=== PATIENT | female | born 1990 | race Caucasian/White ===

== ENCOUNTER 2019-03-04 19:43 | Observation (INO) ==
[2019-03-04 20:14] LABS: Amphetamine Screen,Urine Negative ng/mL (Cutoff=1000); Barbiturate Screen,Urine Negative ng/mL (Cutoff=200); Benzodiazepines Screen,Urine Negative ng/mL (Cutoff=200); Cannabinoid Screen,Urine Negative ng/mL (Cutoff = 50); Cocaine Screen,Urine Negative ng/mL (Cutoff= 300); Opiate Screen,Urine Negative ng/mL (Cutoff=300); Phencyclidine Screen,Urine Negative ng/mL (Cutoff=25)
[2019-03-04] MEDS ORDERED: Ringers Solution, Lactated 1,000 ML IVC SCH (20:30)
[2019-03-04] MEDS ORDERED: Ringers Solution, Lactated 1,000 ML ONE (20:33)
--- NOTE | 2019-03-04 20:37 | OB/GYN History & Physical ---
Date of Encounter: 03/04/19 Time of Encounter: 20:29 Assessment and Plan (1) 31 weeks gestation of Current visit: Yes Status: Acute admitted for observation (2) labor in third trimester Current visit: Yes Status: Acute Collaboration with Dr. Koehler the physician oncall: 1. IV hydration 2. Continuous EFM ant TOCO 3. CBC and glucose 4. Betamethasone to be give 5. If contractions start consider tocolysis and transfer to [facility] with cervical change 6. No antibiotics at this time Qualifiers: labor delivery status: without delivery Qualified Code(s): O60.03 - labor without delivery, third trimester History of Present Illness Chief complaint: vaginal bleeding HPI: Ms. Rocha is a 28 year old female @ 31w5d presents to labor and delivery with complaints of vaginal bleeding following intercourse. Patient states for the past week she has felt crampy and had pressure. She reports urinary frequency but denies dysuria. She reports good movement. Denies feeling contraction. She is a GDM diet controlled. At 20w2d patient had a cervical length of 3.5cm with a 1.2 cm funnel without sludge. Patient receives care with [facility]. Blood type: O Positive Rubella: Immune Hep B: Nonreactive GBS: unknown Past Med Surg Social Fam HX - Past Medical History Source: patient Medical history: no medical history Additional medical history: gastritis Psychiatric history: anxiety, depression - Past Surgical History Surgical History: other (Dental) Additional surgical history: teeth - Social History Smoking Status: Former smoker Smokeless Tobacco Status: Yes (occasionally) Alcohol use: none Drug use: none Current living situation: Home - Independent Activity Level: Independent ambulation - Family History Mother Age: 55 Living Status: Still Living Hx Family Cardiac Disorders: Yes (HTN) Obstetrical History - Pregnancies : 2 Para: 1 Term: 1 : 0 Ab's: 0 Livin Medications and Allergies Acetaminophen [Tylenol] 500 mg PO Q6HR PRN #20 tablet 09/03/18 [Rx] Alive Gummy 09/03/18 [History] Allergy/AdvReac Type Severity Reaction Status Date / Time Amoxicillin [From Amoxil] Allergy Hives Verified 01/26/19 12:33 metronidazole [From Flagyl] AdvReac See Verified 01/26/19 12:33 Comments Review of System OB - Constitutional Constitutional ROS IM: no chills, no fever(s), no headache(s) - Cardiovascular Cardiovascular: no chest pain, no lightheadedness, no palpitations, no syncope - Respiratory Respiratory: no cough, no dyspnea - Gastrointestinal Gastrointestinal: cramping, no constipation, no diarrhea, no heartburn, no nausea, no vomiting - Genitourinary Genitourinary: abnormal vaginal bleeding (per HPI), urinary frequency, no dysuria, no flank pain, no hematuria, no urinary hesitancy, no urinary urgency, no vaginal odor, no vaginal pruritis Exam - Constitutional Constitutional: well developed, well nourished, no acute distress, average body habitus - HEENT HEENT: Normocephaly, Mucus Membranes Moist - Neck Neck exam: full ROM, supple - Lungs Respiratory exam: CTAB - Cardiovascular Cardiovascular exam: RRR, +S1, +S2 - Abdomen Abdomen: Present: bowel sounds normal, gravid, non tender - Extremities Extremities exam: full ROM, normal capillary refill, normal inspection Deep Tendon Reflex Grade: 2+ Normal - Cervix Dilation: 3 Effacement: 60 Station: -3 - Uterus Uterus exam: Present: normal size, normal contour - Anus/Rectum Anus/Rectum: Present: normal perianal skin - Comments Comments: Speculum exam: Small amount of brown tinged discharge noted in the vagina. No active bleeding noted. Results All other labs normal. - VTE Reasons for not Prescribing Prophylaxis: Treatment not Indicated - Low risk for VTE
[2019-03-04] MEDS: Betamethasone Acet/SodPhos 30 MG/5 ML VIAL IM SCH (20:44)
[2019-03-04 21:04] LABS: Basophils % 0.3 %; Eosinophils # 0.1 K/mcL (0.0-0.6); Eosinophils % 1.1 %; Hematocrit 31.8 % (35.3-44.9); Hemoglobin 10.8 g/dL (11.5-15.4); Immature Granulocytes % 0.6 % (0-4); Lymphocytes % 17.7 %; Mean Corpuscular Hemoglobin 31.4 pg (28.0-33.3); Mean Corpuscular Volume 92.4 fL (83.0-100.0); Mean Platelet Volume 10.7 fL (9.4-12.4); Monocytes # 0.9 K/mcL (0.0-1.3); Monocytes % 7.7 %; Neutrophils # 8.3 K/mcL (1.6-8.9); Platelet Count 192 K/mcL (140-400); Red Blood Count 3.44 M/mcL (3.82-4.97); Red Cell Distribution Width 13.2 % (11.5-14.5); Segmented Neutrophils % 72.6 %; White Blood Count 11.5 K/mcL (4.3-11.1)
[2019-03-04] MEDS ORDERED: Acetaminophen 325 MG TABLET PO PRN (21:09)
[2019-03-04] MEDS ORDERED: Ondansetron 4 MG/2 ML VIAL IVP PRN (21:10)
[2019-03-04 21:18] LABS: Bilirubin,Urine Negative (Negative); Blood,Urine Moderate (Negative); Clarity,Urine Clear (Clear); Color,Urine Yellow (Yellow); Glucose,Urine (UA) Normal (Normal); Ketones,Urine Negative (Negative); Leukocyte Esterase,Urine Trace (Negative); Nitrite,Urine Negative (Negative); Protein,Urine Negative (Neg-Trace); Urobilinogen,Urine Normal (Normal)
[2019-03-04 21:19] LABS: Bacteria,Urine None Seen per hpf (None-Few); Hyaline Casts,Urine None Seen per lpf (None-Few); RBC,Urine 0-3 per hpf (0-3); Squamous Epithelial Cell,Urine Moderate per lpf (None-Few); WBC,Urine 0-3 per hpf (0-3)
[2019-03-04] MEDS ORDERED: *HR* Nalbuphine 10 MG/ML AMPUL IV PRN (21:54)
--- NOTE | 2019-03-04 21:56 | Event Note ---
Date of Encounter: 03/04/19 Time of Encounter: 21:54 Dr. Koehler called and notified on contractions 4-7 min apart. Patient is feeling contractions. Dr. Koehler gave order for Nubain 10mg IVP now. Dr. Koehler on her way to hospital and will reevaluate.
--- NOTE | 2019-03-04 22:30 | Event Note ---
Date of Encounter: 03/04/19 Time of Encounter: 22:29 Dr. Koehler at nurses station to and reviewed EFM tracing. Order received for Magnesium sulfate 4 gram bolus.
[2019-03-04] MEDS ORDERED: Calcium Gluconate 1,000 MG/10 ML VIAL ONE (23:03)
--- NOTE | 2019-03-05 06:41 | OB/GYN Progress Note ---
Date of Encounter: 03/05/19 Time of Encounter: 06:39 - Assessment and Plan (1) 31 weeks gestation of Current Visit: Yes Status: Acute admitted for observation (2) labor in third trimester Current Visit: Yes Status: Acute Collaboration with Dr. Koehler the physician oncall: 1. IV hydration 2. Continuous EFM ant TOCO 3. CBC and glucose 4. Betamethasone to be give 5. If contractions start consider tocolysis and transfer to [facility] with cervical change 6. No antibiotics at this time Qualifiers: labor delivery status: without delivery Qualified Code(s): O60.03 - labor without delivery, third trimester Subjective - Subjective Principal diagnosis: dilation Interval history: Patient sleeping at this time. EFM and [place] strip reviewed. Objective - Exam FHR: auscultation normal, category 1 FHR comments: 130 bpm moderate variability +15x15 accels no decels noted. No contractions noted. Cat. 1 tracing - Labs Labs: Abnormal lab results WBC 11.5 K/mcL (4.3-11.1) H 03/04/19 20:45 RBC 3.44 M/mcL (3.82-4.97) L 03/04/19 20:45 Hgb 10.8 g/dL (11.5-15.4) L 03/04/19 20:45 Hct 31.8 % (35.3-44.9) L 03/04/19 20:45 Urine Blood Moderate (Negative) H 03/04/19 19:30 Ur Leukocyte Esterase Trace (Negative) H 03/04/19 19:30 Ur Squamous Epith Cells Moderate per lpf (None-Few) H 03/04/19 19:30 Ur Culture Indicated? YES (NO) A 03/04/19 19:30
[2019-03-05] MEDS ORDERED: Ampicillin 2 GM in 0.9 % Sodium Chloride Mini Bag 100 ML IVPB ONE (08:52)
--- NOTE | 2019-03-05 08:58 | OB/GYN Progress Note ---
Date of Encounter: 03/05/19 Time of Encounter: 08:54 - Assessment and Plan (1) 31 weeks gestation of Current Visit: Yes Status: Acute (2) labor in third trimester Current Visit: Yes Status: Acute Celestone given at 2043 last evening. Plan for magnesium for inhibition of labor through steroid time. Will also begin ampicillin for GBS prophylaxis. Plan for repeat celestone this evening. Plan per Dr. Clarke who is the attending for this patient today. Qualifiers: labor delivery status: without delivery Qualified Code(s): O60.03 - labor without delivery, third trimester Subjective - Subjective Interval history: Pt denies any complaints this am. She reports the contractions resolved when she got the magnesium last night. She reports feeling well today. Antepartum ROS: vaginal bleeding (spotting), movement normal, no loss of fluid, no contractions Objective - Exam FHR: category 1 FHR comments: 135 RNST Abdomen: Present: soft, gravid. Absent: tenderness Uterus: Absent: tenderness Cervical dilation: 2-3cm, unchanged from previous exam - Labs Labs: Abnormal lab results WBC 11.5 K/mcL (4.3-11.1) H 03/04/19 20:45 RBC 3.44 M/mcL (3.82-4.97) L 03/04/19 20:45 Hgb 10.8 g/dL (11.5-15.4) L 03/04/19 20:45 Hct 31.8 % (35.3-44.9) L 03/04/19 20:45 Urine Blood Moderate (Negative) H 03/04/19 19:30 Ur Leukocyte Esterase Trace (Negative) H 03/04/19 19:30 Ur Squamous Epith Cells Moderate per lpf (None-Few) H 03/04/19 19:30 Ur Culture Indicated? YES (NO) A 03/04/19 19:30
[2019-03-05] MEDS ORDERED: Magnesium Sulfate 20 gm/500mL 20 GM/500 ML IV.SOLN IVC SCH (09:00)
[2019-03-05] MEDS ORDERED: 0.9 % Sodium Chloride 1,000 ML IVC SCH (09:00)
[2019-03-05] MEDS: Ampicillin 1,000 MG in 0.9 % Sodium Chloride Mini Bag 100 ML IVPB SCH ×2 (15:30→19:40)
[2019-03-05] MEDS ORDERED: Prenatal Vit/FA 1 EACH TABLET PO SCH (16:03)
[2019-03-05] MEDS: Betamethasone Acet/SodPhos 30 MG/5 ML VIAL IM SCH (20:50)
== END 2019-03-05 22:55 | disposition home or self-care (01) ==
LOC: 1NENULAB
PROVIDERS: ADMIT Advanced Practice Midwife; ATTEND Advanced Practice Midwife

== ENCOUNTER 2019-03-08 12:52 | Observation (INO) ==
[2019-03-08 13:31] VITALS: BP 116/71
[2019-03-08 13:53] LABS: Bilirubin,Urine Negative (Negative); Blood,Urine Trace (Negative); Clarity,Urine Clear (Clear); Color,Urine Yellow (Yellow); Glucose,Urine (UA) Normal (Normal); Ketones,Urine Negative (Negative); Leukocyte Esterase,Urine Trace (Negative); Nitrite,Urine Negative (Negative); Protein,Urine Negative (Neg-Trace); Specific Gravity,Urine 1.008 (1.010-1.025); Urobilinogen,Urine Normal (Normal)
[2019-03-08 13:55] LABS: Bacteria,Urine None Seen per hpf (None-Few); Hyaline Casts,Urine None Seen per lpf (None-Few); Squamous Epithelial Cell,Urine Many per lpf (None-Few)
[2019-03-08 14:18] LABS: Amphetamine Screen,Urine Negative ng/mL (Cutoff=1000); Barbiturate Screen,Urine Negative ng/mL (Cutoff=200); Benzodiazepines Screen,Urine Negative ng/mL (Cutoff=200); Cannabinoid Screen,Urine Negative ng/mL (Cutoff = 50); Cocaine Screen,Urine Negative ng/mL (Cutoff= 300); Opiate Screen,Urine Negative ng/mL (Cutoff=300); Phencyclidine Screen,Urine Negative ng/mL (Cutoff=25)
== END 2019-03-08 15:04 | disposition home or self-care (01) ==
LOC: 1NENULAB
PROVIDERS: ADMIT Registered Nurse; ATTEND Registered Nurse

== ENCOUNTER 2019-03-24 19:35 | Observation (INO) ==
[2019-03-24 20:10] LABS: Bilirubin,Urine Negative (Negative); Blood,Urine Negative (Negative); Clarity,Urine Clear (Clear); Color,Urine Yellow (Yellow); Glucose,Urine (UA) Normal (Normal); Ketones,Urine Negative (Negative); Leukocyte Esterase,Urine Moderate (Negative); Nitrite,Urine Negative (Negative); Protein,Urine Negative (Neg-Trace); Specific Gravity,Urine 1.007 (1.010-1.025); Urobilinogen,Urine Normal (Normal)
[2019-03-24 20:13] LABS: Bacteria,Urine Few per hpf (None-Few); Hyaline Casts,Urine None Seen per lpf (None-Few); Squamous Epithelial Cell,Urine Many per lpf (None-Few); WBC,Urine 15-30 per hpf (0-3)
[2019-03-24 20:31] LABS: Amphetamine Screen,Urine Negative ng/mL (Cutoff=1000); Barbiturate Screen,Urine Negative ng/mL (Cutoff=200); Benzodiazepines Screen,Urine Negative ng/mL (Cutoff=200); Cannabinoid Screen,Urine Negative ng/mL (Cutoff = 50); Cocaine Screen,Urine Negative ng/mL (Cutoff= 300); Opiate Screen,Urine Negative ng/mL (Cutoff=300); Phencyclidine Screen,Urine Negative ng/mL (Cutoff=25)
[2019-03-24] MEDS ORDERED: Ondansetron 4 MG/2 ML VIAL IVP PRN (21:39)
[2019-03-24] MEDS ORDERED: Ringers Solution, Lactated 1,000 ML ONE (21:44)
[2019-03-24] MEDS ORDERED: Ringers Solution, Lactated 1,000 ML IVC SCH (21:45)
[2019-03-24 22:19] LABS: Basophils % 0.3 %; Eosinophils # 0.1 K/mcL (0.0-0.6); Eosinophils % 0.5 %; Hematocrit 33.3 % (35.3-44.9); Hemoglobin 11.5 g/dL (11.5-15.4); Lymphocytes % 8.5 %; Mean Corpuscular HGB Conc 34.5 g/dL (31.6-35.5); Mean Corpuscular Hemoglobin 31.4 pg (28.0-33.3); Mean Platelet Volume 10.7 fL (9.4-12.4); Monocytes # 0.5 K/mcL (0.0-1.3); Monocytes % 4.8 %; Neutrophils # 9.6 K/mcL (1.6-8.9); Platelet Count 165 K/mcL (140-400); Red Blood Count 3.66 M/mcL (3.82-4.97); Red Cell Distribution Width 13.3 % (11.5-14.5); Segmented Neutrophils % 84.9 %; White Blood Count 11.3 K/mcL (4.3-11.1)
[2019-03-24 22:22] LABS: Protein/Creatinine Ratio,Urine 0.22 mg/mg (0.00-0.20)
[2019-03-24 22:32] LABS: Alanine Aminotransferase 8 Units/L (7-52); Aspartate Amino Transferase 10 Units/L (13-39); BUN/Creatinine Ratio 18 (6-26); Blood Urea Nitrogen 6 mg/dL (6-20); Uric Acid 4.1 mg/dL (2.3-7.6); eGFR For African Americans > 60 (> 60); eGFR For Non-African Americans > 60 (> 60)
[2019-03-24 22:56] LABS: Lactate Dehydrogenase 118 Units/L (140-271)
[2019-03-24 23:59] LABS: Albumin 3.5 g/dL (3.5-5.7); Albumin/Globulin Ratio 1.5 (1.1-2.2); Alkaline Phosphatase 61 Units/L (34-104); Amylase 36 Units/L (29-103); Bilirubin,Total 0.4 mg/dL (0.3-1.0); Calcium 8.7 mg/dL (8.6-10.3); Carbon Dioxide 20 mEq/L (23-29); Chloride 107 mEq/L (98-107); Globulin 2.4 g/dL (2.4-3.5); Glucose 79 mg/dL (70-105); Lipase 18 Units/L (11-82); Osmolality,Calculated 281 (280-300); Potassium 3.2 mEq/L (3.5-5.1); Sodium 137 mEq/L (136-145); Total Protein 5.9 g/dL (6.4-8.9)
[2019-03-25] MEDS ORDERED: Sucralfate 1 GM TABLET PO SCH (00:39)
== END 2019-03-25 02:36 | disposition home or self-care (01) ==
LOC: 1NENULAB
PROVIDERS: ADMIT Registered Nurse; ATTEND Registered Nurse

== ENCOUNTER 2019-04-07 20:14 | Observation (INO) ==
[2019-04-07 20:52] LABS: Bilirubin,Urine Negative (Negative); Blood,Urine Negative (Negative); Clarity,Urine Clear (Clear); Color,Urine Yellow (Yellow); Glucose,Urine (UA) Normal (Normal); Ketones,Urine Negative (Negative); Leukocyte Esterase,Urine Negative (Negative); Nitrite,Urine Negative (Negative); Protein,Urine Negative (Neg-Trace); Specific Gravity,Urine 1.005 (1.010-1.025); Urobilinogen,Urine Normal (Normal)
[2019-04-07 21:01] LABS: Amphetamine Screen,Urine Negative ng/mL (Cutoff=1000); Barbiturate Screen,Urine Negative ng/mL (Cutoff=200); Benzodiazepines Screen,Urine Negative ng/mL (Cutoff=200); Cannabinoid Screen,Urine Negative ng/mL (Cutoff = 50); Cocaine Screen,Urine Negative ng/mL (Cutoff= 300); Opiate Screen,Urine Negative ng/mL (Cutoff=300); Phencyclidine Screen,Urine Negative ng/mL (Cutoff=25)
== END 2019-04-07 21:51 | disposition home or self-care (01) ==
LOC: 1NENULAB
PROVIDERS: ADMIT Advanced Practice Midwife; ATTEND Advanced Practice Midwife

== ENCOUNTER 2019-04-10 15:29 | Inpatient (IN) ==
[2019-04-10 11:53] LABS: HSV Source vaginal
[2019-04-10 11:55] LABS: Bilirubin,Urine Negative (Negative); Blood,Urine Moderate (Negative); Clarity,Urine Clear (Clear); Color,Urine Yellow (Yellow); Glucose,Urine (UA) Normal (Normal); Ketones,Urine 40 mg/dL (Negative); Leukocyte Esterase,Urine Small (Negative); Nitrite,Urine Negative (Negative); Protein,Urine Negative (Neg-Trace); Specific Gravity,Urine 1.008 (1.010-1.025); Urobilinogen,Urine Normal (Normal)
[2019-04-10 11:57] LABS: Bacteria,Urine Few per hpf (None-Few); Hyaline Casts,Urine None Seen per lpf (None-Few); Squamous Epithelial Cell,Urine Many per lpf (None-Few)
[2019-04-10 12:26] LABS: Amphetamine Screen,Urine Negative ng/mL (Cutoff=1000); Barbiturate Screen,Urine Negative ng/mL (Cutoff=200); Benzodiazepines Screen,Urine Negative ng/mL (Cutoff=200); Cannabinoid Screen,Urine Negative ng/mL (Cutoff = 50); Cocaine Screen,Urine Negative ng/mL (Cutoff= 300); Opiate Screen,Urine Negative ng/mL (Cutoff=300); Phencyclidine Screen,Urine Negative ng/mL (Cutoff=25)
[2019-04-10 13:03] LABS: HSV 1 DNA Not Detected (Not Detect)
[2019-04-10 13:04] LABS: HSV 2 DNA Not Detected (Not Detect)
[~2019-04-10 15:29] MED LIST: *HR* Nalbuphine 10 MG/ML AMPUL IVP PRN; Famotidine 20 MG/2 ML VIAL IVP PRN; Metoclopramide 10 MG/2 ML VIAL IVP PRN; Naloxone 0.4 MG/ML INJ IVP PRN; Ondansetron 4 MG/2 ML VIAL IVP PRN; Ringers Solution, Lactated 1,000 ML IVC SCH
[2019-04-10 16:27] LABS: Basophils % 0.1 %; Eosinophils % 0.2 %; Hemoglobin 12.1 g/dL (11.5-15.4); Immature Granulocytes % 0.6 % (0-4); Lymphocytes # 1.7 K/mcL (0.6-4.6); Lymphocytes % 9.6 %; Mean Corpuscular HGB Conc 34.6 g/dL (31.6-35.5); Mean Corpuscular Hemoglobin 31.6 pg (28.0-33.3); Mean Corpuscular Volume 91.4 fL (83.0-100.0); Mean Platelet Volume 10.9 fL (9.4-12.4); Monocytes % 5.7 %; Neutrophils # 14.3 K/mcL (1.6-8.9); Platelet Count 170 K/mcL (140-400); Red Blood Count 3.83 M/mcL (3.82-4.97); Red Cell Distribution Width 13.8 % (11.5-14.5); Segmented Neutrophils % 83.8 %; White Blood Count 17.1 K/mcL (4.3-11.1)
[2019-04-10] MEDS ORDERED: *HR* FentaNYL (PF) 100 MCG/2 ML VIAL ONE (16:53)
[2019-04-10] MEDS ORDERED: Naloxone 0.4 MG/ML INJ IVP PRN (16:56)
[2019-04-10] MEDS ORDERED: Ropivacaine/PF 0.2% 20 ML VIAL EP ONE (16:56)
[2019-04-10] MEDS ORDERED: *HR* FentaNYL (PF) 100 MCG/2 ML VIAL EP ONE (16:56)
[2019-04-10] MEDS ORDERED: Ondansetron 4 MG/2 ML VIAL IVP PRN (16:56)
[2019-04-10] MEDS ORDERED: EPHEDrine 50 MG/ML VIAL IVP PRN (16:56)
[2019-04-10] MEDS ORDERED: Epidural Premix (fent/bupiv) 110 ML EP SCH (17:00)
[2019-04-10] MEDS ORDERED: Oxytocin 20 units/ LR 1000 mL 20 UNIT/1,000 ML BAG IVC ONE ×2 (19:36→21:16)
[2019-04-10] MEDS ORDERED: Benzocaine/Menthol 56 GM AEROSOL SPRAY TP PRN (23:01)
[2019-04-10] MEDS ORDERED: Oxytocin 20 units/ LR 1000 mL 20 UNIT/1,000 ML BAG IVC SCH (23:01)
[2019-04-10] MEDS ORDERED: Measles/Mumps/Rubella Vacc 0.5 ML VIAL SQ PRN (23:01)
[2019-04-10] MEDS: Ibuprofen 600 MG TABLET PO PRN (23:44)
[2019-04-11] MEDS: Acetaminophen 325 MG TABLET PO PRN ×2 (00:55→09:50)
[2019-04-11] MEDS: Ibuprofen 600 MG TABLET PO PRN ×2 (06:01→15:54)
[2019-04-11 07:46] LABS: Basophils % 0.2 %; Eosinophils % 0.3 %; Hematocrit 28.5 % (35.3-44.9); Hemoglobin 9.5 g/dL (11.5-15.4); Immature Granulocytes % 1.3 % (0-4); Lymphocytes # 1.7 K/mcL (0.6-4.6); Lymphocytes % 10.6 %; Mean Corpuscular HGB Conc 33.3 g/dL (31.6-35.5); Mean Corpuscular Hemoglobin 31.6 pg (28.0-33.3); Mean Corpuscular Volume 94.7 fL (83.0-100.0); Mean Platelet Volume 11.1 fL (9.4-12.4); Monocytes # 1.2 K/mcL (0.0-1.3); Monocytes % 7.3 %; Neutrophils # 12.7 K/mcL (1.6-8.9); Platelet Count 135 K/mcL (140-400); Red Blood Count 3.01 M/mcL (3.82-4.97); Red Cell Distribution Width 13.6 % (11.5-14.5); Segmented Neutrophils % 80.3 %; White Blood Count 15.8 K/mcL (4.3-11.1)
[2019-04-11] MEDS ORDERED: Prenatal Vit/FA 1 EACH TABLET PO SCH (09:00)
[2019-04-11] MEDS ORDERED: hydrOXYzine pamoate 25 MG CAPSULE PO PRN ×3 (09:20→09:30)
[2019-04-11] MEDS ORDERED: FLUoxetine 20 MG CAPSULE PO SCH (09:21)
[2019-04-11 16:01] VITALS: BP 95/51
== END 2019-04-11 19:05 | disposition home or self-care (01) | DRG 560 ==
LOC: 1NENULAB → 1NENUOBS 22:32
PROVIDERS: ADMIT Registered Nurse; ATTEND Registered Nurse